=== PATIENT | female | born 1985 | race Caucasian/White ===

== ENCOUNTER 2017-04-21 22:49 | Emergency (ER) | payer MEDICARE, OTHER ==
[~2017-04-21] VITALS: Ht 167.6 cm; Wt 59.8 kg
[2017-04-21 22:52] VITALS: BP 120/63; PULSE 81; RESP 18; TEMP 97.4; O2SAT 99
[2017-04-21] MEDS ORDERED: ABIL15TA3 PO (22:58)
[2017-04-21] MEDS ORDERED: LIOT50 PO (22:58)
[2017-04-21 23:46] VITALS: BP 96/66; PULSE 74; RESP 16; O2SAT 100
[2017-04-22] MEDS ORDERED: SODIUM CHLORIDE 0.9% FLUSH 10 ML FLUSH IVF PRN (00:15)
--- NOTE | 2017-04-22 00:39 | PD ---
HPI Chief Complaint: Cardiac Complaint Time Seen by Provider: 00:01 Travel History International Travel<30 days: No Contact w/Intl Traveler<30days: No Traveled to known affect area: No History of Present Illness HPI 31-year-old female presents to the emergency department by private transportation the care family for evaluation of dizziness and chest pain after taking dietary supplement earlier today. Patient states she was diagnosed with hypothyroidism 5 years ago and more recently was started on Synthroid for thyroid management. Patient states after being on the medication for approximately a week or 2 weeks she felt like she was gaining weight so went to her primary care provider who recently changed her medication and discontinued Synthroid and replaced it with Cytomel. Patient felt like she had gained weight while she was on the Synthroid medication so decided to use an over-the- counter dietary supplement that she purchased along with Slim fast and after taking the medication and drinking a Slim fast became dizzy felt like her heart was soldering and this evening checked her blood pressure and noted it to be elevated at 140/110. She states her normal blood pressure is 90/60 and this was very atypical for her. Patient also had some headache. No change in mentation no visual disturbance no nausea or vomiting no referred neck child back shoulder arm or abdominal pain associated with her palpitations. Patient did not complain of shortness of breath. Patient was very nauseated and had vomiting. Patient also feels very shaky and tremulous. Patient finally decided to come to the emergency room for evaluation. Patient shared her symptoms with her mother who encouraged her to drink increased amounts of water and patient now states that she feels improved and close to her normal after fluid hydration. Patient denies other concerns or complaints. PFSH Past Medical History Narrative Medical Hypothyroidism; occasional alcohol use; nursing notes reviewed ?: Not LMP: 04/11/17 Social History Alcohol Use: Yes (seldom) Tobacco Use: No Substance Use: No Allergies-Medications (Allergen,Severity, Reaction): Coded Allergies: No Known Allergies (Unverified , 04/21/17) Reported Meds & Prescriptions Reported Meds & Active Scripts Active Reported Cytomel (Liothyronine Sodium) 50 Mcg Tab 50 Mcg PO DAILY Abilify (Aripiprazole) 15 Mg Tab 15 Mg PO DAILY Review of Systems Except as stated in HPI: all other systems reviewed are Neg Physical Exam Narrative GENERAL: Well-developed well-nourished female in no acute distress or respiratory distress SKIN: Warm and dry. HEAD: Normocephalic. EYES: No scleral icterus. No injection or drainage. NECK: Supple, trachea midline. No JVD or lymphadenopathy. CARDIOVASCULAR: Regular rate and rhythm without murmurs, gallops, or rubs. RESPIRATORY: Breath sounds equal bilaterally. No accessory muscle use. GASTROINTESTINAL: Abdomen soft, non-tender, nondistended. MUSCULOSKELETAL: No cyanosis, or edema. BACK: Nontender without obvious deformity. No CVA tenderness. Data Data Last Documented VS Vital Signs Date Time Temp Pulse Resp B/P (MAP) Pulse Ox O2 Delivery O2 Flow Rate FiO2 04/21/17 23:46 74 16 96/66 (76) 100 Room Air 04/21/17 22:52 97.4 Orders Orders Electrocardiogram (04/22/17 00:01) Basic Metabolic Panel (Bmp) (04/22/17 00:01) Ckmb (Isoenzyme) Profile (04/22/17 00:01) Complete Blood Count With Diff (04/22/17 00:01) Magnesium (Mg) (04/22/17 00:01) Prothrombin Time / Inr (Pt) (04/22/17 00:01) Act Partial Throm Time (Ptt) (04/22/17 00:01) Troponin I (04/22/17 00:01) Chest, Single Ap (04/22/17 00:01) Ecg Monitoring (04/22/17 00:01) Bilateral Bp Monitoring (04/22/17 00:01) Iv Access Insert/Monitor (04/22/17 00:01) Oximetry (04/22/17 00:01) Oxygen Administration (04/22/17 00:01) Sodium Chloride 0.9% Flush (Ns Flush) (04/22/17 00:15) Thyroid Stimulating Hormone (04/22/17 00:01) Ed Urine Pregnancytest Poc (04/22/17 00:01) Drug Screen, Random Urine (04/22/17 00:01) Ketorolac Inj (Toradol Inj) (04/22/17 01:30) CKMB (04/22/17 00:50) CKMB% (04/22/17 00:50) Labs Laboratory Tests Test 04/22/17 00:50 White Blood Count 11.5 TH/MM3 Red Blood Count 4.53 MIL/MM3 Hemoglobin 13.6 GM/DL Hematocrit 39.7 % Mean Corpuscular Volume 87.6 FL Mean Corpuscular Hemoglobin 30.1 PG Mean Corpuscular Hemoglobin Concent 34.4 % Red Cell Distribution Width 11.8 % Platelet Count 269 TH/MM3 Mean Platelet Volume 7.5 FL Neutrophils (%) (Auto) 80.3 % Lymphocytes (%) (Auto) 13.4 % Monocytes (%) (Auto) 4.5 % Eosinophils (%) (Auto) 0.5 % Basophils (%) (Auto) 1.3 % Neutrophils # (Auto) 9.3 TH/MM3 Lymphocytes # (Auto) 1.5 TH/MM3 Monocytes # (Auto) 0.5 TH/MM3 Eosinophils # (Auto) 0.1 TH/MM3 Basophils # (Auto) 0.1 TH/MM3 CBC Comment DIFF FINAL Differential Comment Prothrombin Time 10.3 SEC Prothromb Time International Ratio 1.0 RATIO Activated Partial Thromboplast Time 25.7 SEC Blood Urea Nitrogen 16 MG/DL Creatinine 0.85 MG/DL Random Glucose 111 MG/DL Calcium Level 8.5 MG/DL Magnesium Level 2.0 MG/DL Sodium Level 136 MEQ/L Potassium Level 3.7 MEQ/L Chloride Level 101 MEQ/L Carbon Dioxide Level 28.3 MEQ/L Anion Gap 7 MEQ/L Estimat Glomerular Filtration Rate 78 ML/MIN Total Creatine Kinase 139 U/L Creatine Kinase MB 1.6 NG/ML Troponin I LESS THAN 0.02 NG/ML Thyroid Stimulating Hormone 3rd Gen 1.280 uIU/ML Urine Opiates Screen NEG Urine Barbiturates Screen NEG Urine Amphetamines Screen NEG Urine Benzodiazepines Screen NEG Urine Cocaine Screen NEG Urine Cannabinoids Screen NEG [facility] Medical Decision Making Medical Screen Exam Complete: Yes Emergency Medical Condition: Yes Medical Record Reviewed: Yes Interpretation(s) poc HCG negative Troponin I less than 0.02, not elevated Urine drug screen negative EKG normal sinus rhythm rate [address] elevation injury pattern incomplete right bundle branch block Last Impressions Chest X-Ray 04/22/17 0001 Signed Impressions: Service Date/Time: Saturday, April 22, 2017 00:16 - CONCLUSION: No acute cardiopulmonary disease. Kike Mo MD CBC & BMP Diagram 04/22/17 00:50 Calcium Level 8.5, Magnesium Level 2.0 Vital Signs Date Time Temp Pulse Resp B/P (MAP) Pulse Ox O2 Delivery O2 Flow Rate FiO2 04/21/17 23:46 74 16 96/66 (76) 100 Room Air 04/21/17 22:52 97.4 81 18 120/63 (82) 99 tsh: 1.280 Differential Diagnosis Adverse supplement reaction, electrolyte disturbance, thyroid dysfunction, palpitations, anxiety Narrative Course Patient placed on monitor and storage bin tender IV access obtained pulse oximetry monitored EKG sinus rhythm rate 70 with incomplete right bundle branch block no ST segment elevation injury pattern change noted Patient resting comfortably voicing no concerns or complaints lab values have been discussed with patient with family at bedside and patient is stable for outpatient management patient is encouraged not to use any [id number] supplements and if she decides to use a supplement on current medications that are prescribed by her primary she does should discuss this with her primary beforehand. Patient is stable for outpatient management and close follow-up with her primary care provider Diagnosis Primary Impression: Adverse drug interaction with dietary supplement Referrals: Primary Care Physician call for appointment Patient Instructions: General Instructions Additional Instructions: Discontinue dietary/herbal supplement Follow-up with your primary care provider Increase fluid hydration Return to the emergency department for any concerns or change in condition Key Ferraro MD Apr 22, 2017 00:39
--- NOTE | 2017-04-22 00:40 | RADRPT ---
EXAM DATE/TIME: 04/22/2017 00:16 [facility] COMPARISON: No previous studies available for comparison. INDICATIONS : Chest discomfort, increasing blood pressure starting today MEDICAL HISTORY : None. SURGICAL HISTORY : None. ENCOUNTER: Initial ACUITY: 1 day PAIN SCORE: 0/10 LOCATION: Bilateral chest FINDINGS: The lungs are clear without infiltrate, nodule, or mass. There is no appreciable pleural effusion fo r technique. Heart and mediastinum are unremarkable. Slight thoracolumbar scoliosis is seen. CONCLUSION: No acute cardiopulmonary disease. Kike Mo MD on April 22, 2017 at 0:38 Board Certified Radiologist. This report was verified electronically.
[2017-04-22 00:59] LABS: AUTOMATED NEUTROPHIL # 9.3 TH/MM3 (1.8-7.7); BASOPHIL # 0.1 TH/MM3 (0-0.2); BASOPHIL % 1.3 % (0.0-2.0); EOSINOPHIL # 0.1 TH/MM3 (0-0.4); EOSINOPHIL % 0.5 % (0.0-4.0); HEMATOCRIT 39.7 % (35.0-46.0); HEMOGLOBIN 13.6 GM/DL (11.6-15.3); LYMPH % 13.4 % (9.0-44.0); LYMPHOCYTE # 1.5 TH/MM3 (1.0-4.8); MEAN CELL VOLUME 87.6 FL (80.0-100.0); MEAN CORPUSCULAR HEMOGLOBIN 30.1 PG (27.0-34.0); MEAN CORPUSCULAR HGB CONC 34.4 % (32.0-36.0); MEAN PLATELET VOLUME 7.5 FL (7.0-11.0); MONO % 4.5 % (0.0-8.0); MONOCYTE # 0.5 TH/MM3 (0-0.9); NEUT % 80.3 % (16.0-70.0); PLATELET COUNT 269 TH/MM3 (150-450); RED BLOOD COUNT 4.53 MIL/MM3 (4.00-5.30); RED CELL DISTRIBUTION WIDTH 11.8 % (11.6-17.2); WHITE BLOOD COUNT 11.5 TH/MM3 (4.0-11.0)
[2017-04-22 01:09] LABS: CHLORIDE 101 MEQ/L (98-107); SODIUM (NA) 136 MEQ/L (136-145)
[2017-04-22 01:11] LABS: CALCIUM 8.5 MG/DL (8.5-10.1)
[2017-04-22 01:12] LABS: BICARBONATE 28.3 MEQ/L (21.0-32.0); BLOOD UREA NITROGEN 16 MG/DL (7-18); GLUCOSE,RANDOM 111 MG/DL (74-106)
[2017-04-22 01:13] LABS: PROTHROMBIN TIME - PATIENT 10.3 SEC (9.8-11.6)
[2017-04-22 01:15] LABS: CREATININE 0.85 MG/DL (0.50-1.00); GLOMERULAR FILTRATION RATE 78 ML/MIN (>89)
[2017-04-22 01:20] LABS: TROPONIN I LESS THAN 0.02 NG/ML (0.02-0.05)
[2017-04-22] MEDS ORDERED: KETOROLAC TROMETHAMINE 30 MG/ML (IVP) VIAL IV PUSH ONE (01:30)
[2017-04-22] MEDS ORDERED: SODIUM CHLOR 0.9% 1000 ML INJ 1,000 ML IV ONE (01:45)
[2017-04-22] MEDS ORDERED: ONDANSETRON HCL 4 MG/2 ML VIAL IV PUSH ONE (02:15)
[2017-04-22 03:11] VITALS: BP 97/62
--- NOTE | 2017-04-23 00:05 | EKG ---
Date Performed: 04/22/2017 Time Performed: 00:16:10 PTAGE: 31 years EKG: Sinus rhythm WITH SINUS ARRHYTHMIA INCOMPLETE RIGHT BUNDLE BRANCH BLOCK BORDERLINE ECG NO PREVIOUS TRACING DOCTOR: Summer Modi Interpretating Date/Time 04/23/2017 00:04:28
== END 2017-04-22 03:14 | disposition home or self-care (01) ==
LOC: PHED 22:49
DX: R42 Dizziness and giddiness (principal); R07.89 Other chest pain; T50.905A Adverse effect of unspecified drugs, medicaments and biological substances, initial encounter; E03.9 Hypothyroidism, unspecified; R94.31 Abnormal electrocardiogram [ECG] [EKG]; Z79.899 Other long term (current) drug therapy
CPT/HCPCS: 71045; 80048; 80307; 82550; 82552; 83735; 84443; 84484; 84703; 85025; 85610; 85730; 93005; 96361; 96374; 96375; 99285; J1885; J2405; J7030